=== PATIENT | male | born 1975 | race Hispanic/Latino ===

== ENCOUNTER 2021-10-09 19:47 | Inpatient (IN) | payer BC, OTHER ==
[~2021-10-09] VITALS: Ht 170.2 cm; Wt 94.6 kg
[2021-10-09 20:26] LABS: BASOPHILS % (AUTO) 0.1 % (0.0-5.0); HEMATOCRIT 27.8 % (42-54); LYMPHOCYTES % (AUTO) 17.9 % (21.0-51.0); MEAN CORPUSCULAR HGB CONC 36.7 g/dL (32.0-36.0); MONOCYTES % (AUTO) 5.4 % (3.0-13.0); NEUTROPHILS % (AUTO) 75.3 % (40.0-77.0); PLATELET COUNT (AUTO) 138 K/uL (130-400); RED BLOOD CELL COUNT(AUTO) 2.55 MIL/uL (4.50-6.20); RED CELL DISTRIBUTION WIDTH 13.1 % (11.0-15.5); WHITE BLOOD COUNT (AUTO) 6.9 K/uL (4.8-10.8)
[2021-10-09] MEDS ORDERED: 0.9%NACL 1000ML 1,000 ML IV SCH (20:30)
[2021-10-09] MEDS ORDERED: INSULIN HUMULIN R 100 UNIT/ML 3ML SQ ONE (20:30)
[2021-10-09 20:35] LABS: APPEARANCE,URINE CLEAR (CLEAR); BILIRUBIN,URINE NEGATIVE (NEGATIVE); COLOR,URINE YELLOW (YELLOW); GLUCOSE, URINE (UA) >=1000 mg/dL (NEGATIVE); KETONES,URINE NEGATIVE (NEGATIVE); LEUKOCYTE ESTERASE ,URINE NEGATIVE (NEGATIVE); NITRATE,URINE NEGATIVE (NEGATIVE); OCCULT BLOOD,URINE NEGATIVE (NEGATIVE); PROTEIN,URINE NEGATIVE (NEGATIVE); UROBILINOGEN,URINE 0.2 mg/dL (0.2-1.0)
[2021-10-09 20:42] LABS: ALBUMIN 3.8 g/dL (3.5-5.0); BILIRUBIN,TOTAL 1.1 mg/dL (0.2-1.0); POTASSIUM 4.7 mmol/L (3.5-5.1); TOTAL PROTEIN, SERUM 7.3 g/dL (6.0-8.3)
[2021-10-09 20:44] LABS: ABG OXYGEN SATURATION 68.1 % (95.0-99.0); BASE EXCESS,VENOUS BLOOD GAS -1.8 (-2.0-3.0); HCO3,VENOUS BLOOD GAS 22.6 (21.0-28.0); PCO2,VENOUS BLOOD GAS 38 (35-48); PH,VENOUS BLOOD GAS 7.398 (7.350-7.450)
[2021-10-09 21:02] LABS: BACTERIA,URINE Few /HPF (None Seen); RBC,URINE 0-1 /HPF (0-1); WBC,URINE 0-1 /HPF (0-1)
[2021-10-09 21:03] LABS: SQUAMOUS EPITHELIAL CELL,UR Rare /HPF (0-2)
[2021-10-09 21:04] LABS: URIC ACID CRYSTALS,URINE Rare /LPF (None Seen)
[2021-10-09] MEDS ORDERED: INSULIN HUMULIN R 100 UNIT/ML 3ML SQ PRN (21:30)
[2021-10-09] MEDS ORDERED: ACETAMINOPHEN 325 MG TAB PO PRN (21:30)
[2021-10-09] MEDS ORDERED: ONDANSETRON 4MG TABLET PO PRN (21:30)
[2021-10-09] MEDS: 0.9%NACL 1000ML 1,000 ML IV SCH (22:09)
[2021-10-10 04:00] VITALS: BP 110/67
[2021-10-10 06:53] LABS: CREATININE 1.2 mg/dL (0.5-1.5); MAGNESIUM 1.6 mg/dL (1.80-2.40); POTASSIUM 4.1 mmol/L (3.5-5.1)
[2021-10-10 07:09] LABS: BASOPHILS % (AUTO) 0.2 % (0.0-5.0); EOSINOPHILS % (AUTO) 3.3 % (0.0-8.0); HEMATOCRIT 23.3 % (42-54); LYMPHOCYTES % (AUTO) 34.2 % (21.0-51.0); MEAN CORPUSCULAR HEMOGLOBIN 39.3 pg (27.0-33.0); MEAN CORPUSCULAR HGB CONC 36.1 g/dL (32.0-36.0); MEAN CORPUSCULAR VOLUME 108.9 fL (79-99); MONOCYTES % (AUTO) 4.9 % (3.0-13.0); NEUTROPHILS % (AUTO) 57.2 % (40.0-77.0); PLATELET COUNT (AUTO) 113 K/uL (130-400); RED BLOOD CELL COUNT(AUTO) 2.14 MIL/uL (4.50-6.20); RED CELL DISTRIBUTION WIDTH 12.9 % (11.0-15.5); WHITE BLOOD COUNT (AUTO) 4.9 K/uL (4.8-10.8)
[2021-10-10 07:24] LABS: HEMOGLOBIN A1C 11.9 % (4.0-6.0)
[2021-10-10] MEDS: INSULIN HUMULIN R 100 UNIT/ML 3ML SQ SCH ×5 (07:56→21:14)
[2021-10-10 08:00] VITALS: BP 113/65
[2021-10-10] MEDS ORDERED: GABA-529 PO (09:08)
[2021-10-10] MEDS ORDERED: FENO145T26 PO (09:08)
[2021-10-10] MEDS ORDERED: GLIP5TAB11 PO (09:08)
[2021-10-10] MEDS ORDERED: METF-444 PO (09:08)
[2021-10-10] MEDS ORDERED: LISI20TA24 PO (09:08)
[2021-10-10] MEDS: 0.9%NACL 1000ML 1,000 ML IV SCH (10:50)
[2021-10-10 12:00] VITALS: BP 115/64
[2021-10-10 16:00] VITALS: BP 134/69
[2021-10-10] MEDS ORDERED: LIDOCAINE HCL-MPF 1% 2ML VIAL IV PRN (16:00)
[2021-10-10] MEDS ORDERED: POTASSIUM CHLORIDE 10% ELIXIR 20 MEQ/15 ML UDCUP PO PRN (16:00)
[2021-10-10] MEDS ORDERED: KCL 20 MEQ ERTAB PO PRN (16:00)
[2021-10-10] MEDS ORDERED: POTASSIUM CHLORIDE 20MEQ/100ML 100 ML IV PRN (16:00)
[2021-10-10] MEDS: GLIPIZIDE 5 MG TABLET PO SCH (16:30)
[2021-10-10] MEDS: METFORMIN HCL 500 MG TABLET PO SCH (16:30)
[2021-10-10] MEDS: MAGNESIUM 2GM PREMIX 50ML 50 ML IV PRN (16:30)
[2021-10-10] MEDS ORDERED: FENOFIBRATE NANOCRYSTALLIZED 145 MG TAB PO SCH (21:00)
[2021-10-10] MEDS: GABAPENTIN 100 MG CAPSULE PO SCH (21:33)
[2021-10-10 21:35] VITALS: BP 132/73
[2021-10-11 00:13] VITALS: BP 111/60
[2021-10-11 04:29] LABS: BASOPHILS % (AUTO) 0.2 % (0.0-5.0); EOSINOPHILS % (AUTO) 2.7 % (0.0-8.0); HEMATOCRIT 22.7 % (42-54); LYMPHOCYTES % (AUTO) 41.6 % (21.0-51.0); MEAN CORPUSCULAR HEMOGLOBIN 39.2 pg (27.0-33.0); MEAN CORPUSCULAR HGB CONC 35.2 g/dL (32.0-36.0); MEAN CORPUSCULAR VOLUME 111.3 fL (79-99); MONOCYTES % (AUTO) 3.9 % (3.0-13.0); NEUTROPHILS % (AUTO) 51.4 % (40.0-77.0); PLATELET COUNT (AUTO) 101 K/uL (130-400); RED BLOOD CELL COUNT(AUTO) 2.04 MIL/uL (4.50-6.20); RED CELL DISTRIBUTION WIDTH 12.8 % (11.0-15.5); WHITE BLOOD COUNT (AUTO) 5.2 K/uL (4.8-10.8)
[2021-10-11 04:34] VITALS: BP 101/59
[2021-10-11 04:37] LABS: CREATININE 0.9 mg/dL (0.5-1.5); MAGNESIUM 1.8 mg/dL (1.80-2.40); POTASSIUM 3.9 mmol/L (3.5-5.1)
[2021-10-11] MEDS: MAGNESIUM 2GM PREMIX 50ML 50 ML IV PRN (05:58)
[2021-10-11] MEDS: 0.9%NACL 1000ML 1,000 ML IV SCH ×2 (05:58→13:30)
[2021-10-11] MEDS: INSULIN HUMULIN R 100 UNIT/ML 3ML SQ SCH ×2 (06:00→13:36)
[2021-10-11 08:30] VITALS: BP 113/68
[2021-10-11] MEDS ORDERED: LISINOPRIL 20 MG TABLET PO SCH (09:00)
[2021-10-11] MEDS: GABAPENTIN 100 MG CAPSULE PO SCH (09:21)
[2021-10-11] MEDS: GLIPIZIDE 5 MG TABLET PO SCH (09:22)
[2021-10-11 12:16] VITALS: BP 123/62
[2021-10-11] MEDS: METFORMIN HCL 500 MG TABLET PO SCH (13:36)
[2021-10-11] MEDS ORDERED: METF-444 PO ×2 (15:38→15:43)
[2021-10-11 16:58] VITALS: BP 133/80
== END 2021-10-11 16:40 | disposition home or self-care (01) | DRG 638 ==
LOC: EDH 19:47 → EDHIP 19:48 → 4DH 10-10 03:57
PROVIDERS: ADMIT Internal Medicine Infectious Disease; ATTEND Internal Medicine Infectious Disease
DX: E11.00 Type 2 diabetes mellitus with hyperosmolarity without nonketotic hyperglycemic-hyperosmolar coma (NKHHC) (principal); N17.9 Acute kidney failure, unspecified; E86.9 Volume depletion, unspecified; E86.0 Dehydration; E66.01 Morbid (severe) obesity due to excess calories; E78.00 Pure hypercholesterolemia, unspecified; I10 Essential (primary) hypertension; Z20.822 Contact with and (suspected) exposure to COVID-19; Z83.3 Family history of diabetes mellitus; Z68.32 Body mass index [BMI] 32.0-32.9, adult
CPT/HCPCS: 36415; 36600; 80048; 80053; 81001; 82803; 82948; 83036; 83735; 85025; 87635; G0378; J1815; J3475; J7030